=== PATIENT | female | born 1985 | race Two or more races ===

== ENCOUNTER 2017-01-28 16:49 | Emergency (ER) | payer OTHER ==
[2017-01-28 17:13] VITALS: BP 138/85; PULSE 83; TEMP 99.3; BMI 33.2
--- NOTE | 2017-01-28 17:28 | PDOC ---
History of Present Illness - General History Source: Patient Exam Limitations: No Limitations - History of Present Illness Initial Comments: 01/28/17 17:29 Patient is a 31 year old female with no significant past medical history who presents to the ED with bleeding from C section incision site. Patient had a Csection 01/18 at [facility]. Patient states that the delivery was without any complications. Patient states that she had staple removal on 01/25 that went well without any bleeding or discharge. She states that this mornin, she noticed oozing at the R side of C section wound. Patient denies any fever or chills. PSH - Gastric bypass 2005, C section 01/18 <Matilde Peck - Last Filed: 01/28/17 17:29> - General History Source: Patient Exam Limitations: No Limitations <Brien Salazar - Last Filed: 01/28/17 18:01> - General Chief Complaint: Revisit,Wound Recheck Stated Complaint: BLEEDING FROM WOUND Time Seen by Provider: 01/28/17 16:57 Past History <Matilde Peck - Last Filed: 01/28/17 17:29> - Past Medical History Diabetes: Yes (GESTATIONAL) - Surgical History Gastric Stapling: Yes (GASTRIC BYPASS 2009) - Psycho/Social/Smoking Cessation Hx Anxiety: No Suicidal Ideation: No Smoking History: Never smoked Hx Alcohol Use: No Drug/Substance Use Hx: No Substance Use Type: Alcohol <Brien Salazar - Last Filed: 01/28/17 18:01> - Past Medical History Allergies/Adverse Reactions: Allergies Allergy/AdvReac Type Severity Reaction Status Date / Time No Known Allergies Allergy Verified 01/28/17 17:01 Home Medications: Ambulatory Orders Ibuprofen 600 mg PO Q6H PRN 01/28/17 Oxycodone HCl/Acetaminophen [Percocet 5-325 mg Tablet] 1 - 2 tab PO Q6H PRN 05/09 Oxycodone HCl/Acetaminophen [Percocet 5-325 mg Tablet] 1 tab PO Q6H PRN #12 tablet MDD 4 01/28/17 Review of Systems - Review of Systems Able to Perform ROS?: Yes Comments:: 01/28/17 17:29 GENERAL/CONSTITUTIONAL: No fever or chills. No weakness. HEAD, EYES, EARS, NOSE AND THROAT: No change in vision. No ear pain or discharge. No sore throat. CARDIOVASCULAR: No chest pain or shortness of breath. RESPIRATORY: No cough, wheezing, or hemoptysis. GASTROINTESTINAL: No nausea, vomiting, diarrhea or constipation. GENITOURINARY: No dysuria, frequency, or change in urination. MUSCULOSKELETAL: No joint or muscle swelling or pain. No neck or back pain. SKIN: (+)oozing at the C section wound. No rash NEUROLOGIC: No headache, vertigo, loss of consciousness, or change in strength/ sensation. ENDOCRINE: No increased thirst. No abnormal weight change. HEMATOLOGIC/LYMPHATIC: No anemia, easy bleeding, or history of blood clots. ALLERGIC/IMMUNOLOGIC: No hives or skin allergy. <Matilde Peck - Last Filed: 01/28/17 17:29> *Physical Exam - Vital Signs Last Vital Signs Temp Pulse Resp BP Pulse Ox 99.3 F 83 18 138/85 98 01/28/17 16:54 01/28/17 16:54 01/28/17 16:54 01/28/17 16:54 01/28/17 16:54 - Physical Exam Comments: 01/28/17 17:32 GENERAL: Awake, alert, and fully oriented, in no acute distress HEAD: No signs of trauma EYES: PERRLA, EOMI, sclera anicteric, conjunctiva clear ENT: Auricles normal inspection, hearing grossly normal, nares patent, oropharynx clear without exudates. Moist mucosa NECK: Normal ROM, supple, no lymphadenopathy, JVD, or masses LUNGS: Breath sounds equal, clear to auscultation bilaterally. No wheezes, and no crackles HEART: Regular rate and rhythm, normal S1 and S2, no murmurs, rubs or gallops ABDOMEN: Soft, nontender, normoactive bowel sounds. No guarding, no rebound. No masses EXTREMITIES: Normal range of motion, no edema. No clubbing or cyanosis. No cords, erythema, or tenderness NEUROLOGICAL: Cranial nerves II through XII grossly intact. Normal speech, normal gait SKIN: (+)0.25 cm ooze from right section of C section scar no erythema, no fluctuance, no wound dehiscence. Warm, Dry, normal turgor, no rashes noted. <Matilde Peck - Last Filed: 01/28/17 17:29> - Vital Signs Last Vital Signs Temp Pulse Resp BP Pulse Ox 99.3 F 83 18 138/85 98 01/28/17 16:54 01/28/17 16:54 01/28/17 16:54 01/28/17 16:54 01/28/17 16:54 <MarieBrien - Last Filed: 01/28/17 18:01> Medical Decision Making - Medical Decision Making 01/28/17 17:26 A portion of this note was documented by scribe services under my direction. I have reviewed the details of the note, within reason, and agree with the documentation with the following case summary and management plan written by me. Patient treated in the ED. Nursing notes are reviewed and incorporated into the medical decision-making. Vital signs reviewed. Peripheral IV access obtained by the nurse, laboratory studies are drawn and sent, reviewed and interpreted by myself. Vital Signs Temp Pulse Resp BP Pulse Ox 99.3 F 83 18 138/85 98 01/28/17 16:54 01/28/17 16:54 01/28/17 16:54 01/28/17 16:54 01/28/17 16:54 31-year-old female with no past medical history, status post from January 18 at [facility] presents with mild oozing from site. Patient had her nicholas removed 2 days ago with no competitions. Today, she noticed that there was some mild oozing and drainage from her right scar. There are no signs of infection. There is no evidence of wound dehiscence but there is some mild oozing. We'll attempt to Dermabond on and place steristrips. If this controls the oozing, will d/c home. 01/28/17 17:59 Dermabond corrected the situation. The patient has been taking percocets at home from her pain. She has been nearly finished. Will give her another 3 day course of percocet and instruct her to follow up with the technical aide doctor for further management. I discussed the physical exam findings, ancillary test results and final diagnoses with the patient. I answered all of the patient's questions. The patient was satisfied with the care received and felt comfortable with the discharge plan and treatment plan. The patient will call their primary care physician within 24 hours to arrange follow-up and will return to the Emergency Department with any new, persistant or worsening symptoms. <Brien Salazar - Last Filed: 01/28/17 18:01> *DC/Admit/Observation/Transfer - Attestations Scribe Attestion: 01/28/17 17:33 Documentation prepared by CATRACHITA Rodarte, acting as medical assembly for Brien Salazar MD. <Matilde Peck - Last Filed: 01/28/17 17:29> - Discharge Dispostion Admit: No <Brien Salazar - Last Filed: 01/28/17 18:01> Diagnosis at time of Disposition: section wound complication - Discharge Dispostion Disposition: HOME Condition at time of disposition: Good - Prescriptions Prescriptions: Oxycodone HCl/Acetaminophen [Percocet 5-325 mg Tablet] 1 tab PO Q6H PRN #12 tablet MDD 4 PRN Reason: Pain - Patient Instructions Printed Discharge Instructions: How to Care for a Surgical Wound Additional Instructions: You have your bleed repaired with Dermabond. Please do not scrub the wound. Follow up with your technical aide doctor. If you have uncontrollable bleeding or leaking, please call your or return to the ER for further evaluation.
[2017-01-28] MEDS ORDERED: OXYCODONE/APAP 5/325MG COMBO TABLET PO ONE (17:55)
[2017-01-28] MEDS ORDERED: OXYCODONE/APAP 5/325MG COMBO TABLET ONE (17:59)
== END 2017-01-28 18:04 | disposition home or self-care (01) ==
LOC: FER 16:49
DX: O90.89 Other complications of the puerperium, not elsewhere classified (principal); L76.22 Postprocedural hemorrhage of skin and subcutaneous tissue following other procedure; Y83.8 Other surgical procedures as the cause of abnormal reaction of the patient, or of later complication, without mention of misadventure at the time of the procedure
CPT/HCPCS: 99281-25

== ENCOUNTER 2017-10-09 10:01 | Emergency (ER) | payer OTHER ==
[2017-10-09 10:07] VITALS: BP 139/88; PULSE 79; TEMP 99; BMI 32.9
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
[2017-10-09] MEDS ORDERED: ACETAMINOPHEN 325 MG TABLET (FP) ONE (10:48)
[2017-10-09] MEDS ORDERED: diazePAM 5 MG TABLET ONE (10:49)
[2017-10-09] MEDS ORDERED: KETOROLAC TROMETHAMINE 30 MG/1 ML VIAL ONE (10:49)
[2017-10-09] MEDS ORDERED: diazePAM 5 MG TABLET PO ONE (10:49)
[2017-10-09] MEDS ORDERED: ACETAMINOPHEN 325 MG TABLET (FP) PO ONE (11:12)
== END 2017-10-09 12:12 | disposition home or self-care (01) ==
LOC: FER 10:01
CPT/HCPCS: 84703; 99282-25

== ENCOUNTER 2023-10-24 10:31 | Emergency (ER) | payer OTHER ==
[2023-10-24 11:24] VITALS: BP 157/96; PULSE 75; RESP 15; TEMP 98.8; BMI 27.6
[2023-10-24] MEDS ORDERED: KETOROLAC TROMETHAMINE 15 MG/ML VIAL IM ONE (11:29)
[2023-10-24] MEDS ORDERED: KETOROLAC TROMETHAMINE 15 MG/ML VIAL ONE (11:49)
== END 2023-10-24 12:04 | disposition home or self-care (01) ==
LOC: FER 10:31 → SUPCPDRO 10:31 → FER 12:04
PROC: 3E0233Z Introduction of Anti-inflammatory into Muscle, Percutaneous Approach (ICD-10-PCS; principal; 2023-10-24)
DX: M79.641 Pain in right hand (principal); M54.50 Low back pain, unspecified; M25.531 Pain in right wrist; W10.9XXA Fall (on) (from) unspecified stairs and steps, initial encounter
CPT/HCPCS: 73110-TC-RT-FY; 73130-TC-RT-FY; 99284-25